=== PATIENT | male | born 1950 | race Hispanic/Latino ===

== ENCOUNTER 2022-07-15 12:44 | Emergency (ER) | payer OTHER, MEDICARE ==
[~2022-07-15] VITALS: Ht 180.3 cm; Wt 83.9 kg
[2022-07-15] MEDS ORDERED: DiphenhydrAMINE HCL 50 MG/ML VIAL ONE (12:50)
[2022-07-15] MEDS ORDERED: FAMOTIDINE 20MG VIAL IV ONE ×2 (12:54→14:00)
[2022-07-15] MEDS ORDERED: SOLU-MEDROL 125MG VIAL ONE (12:54)
[2022-07-15] MEDS ORDERED: 0.9%NACL 1000ML 1,000 ML IV ONE (13:30)
[2022-07-15] MEDS ORDERED: SOLU-MEDROL 125MG VIAL IVP ONE (14:00)
[2022-07-15] MEDS ORDERED: DiphenhydrAMINE HCL 50 MG/ML VIAL IV ONE (14:00)
[2022-07-15] MEDS ORDERED: EPIN0.3P3 IJ (14:54)
[2022-07-15 15:01] VITALS: BP 112/57
== END 2022-07-15 15:39 | disposition home or self-care (01) ==
LOC: EDH 12:44 → EDBD 12:44 → EDH 15:39
DX: T78.2XXA Anaphylactic shock, unspecified, initial encounter (principal); X58.XXXA Exposure to other specified factors, initial encounter; T63.441A Toxic effect of venom of bees, accidental (unintentional), initial encounter; Z79.52 Long term (current) use of systemic steroids
CPT/HCPCS: 99284; 96374; 96375; 93005 ×2; J1200; J3490; J2930

== ENCOUNTER 2022-10-21 08:08 | Emergency (ER) | payer OTHER, MEDICARE ==
[~2022-10-21] VITALS: Ht 177.8 cm; Wt 85.7 kg
[~2022-10-21 08:08] MED LIST: EPIN0.3P3 IJ
[2022-10-21] MEDS ORDERED: KETOROLAC 30MG VIAL (30MG/ML) IM STA (08:13)
[2022-10-21] MEDS ORDERED: NAPR-1196 PO (08:32)
[2022-10-21 09:20] VITALS: BP 119/76
== END 2022-10-21 09:27 | disposition home or self-care (01) ==
LOC: EDH 08:08
DX: S86.911A Strain of unspecified muscle(s) and tendon(s) at lower leg level, right leg, initial encounter (principal); X58.XXXA Exposure to other specified factors, initial encounter; Y93.89 Activity, other specified; Y92.89 Other specified places as the place of occurrence of the external cause; Y99.8 Other external cause status
CPT/HCPCS: 99283; 29505; 73562; J1885

== ENCOUNTER 2023-05-25 09:19 | Emergency (ER) | payer OTHER, MEDICARE ==
[~2023-05-25] VITALS: Ht 177.8 cm; Wt 84.8 kg
[~2023-05-25 09:19] MED LIST changes: +NAPR-1196 PO
[2023-05-25 09:20] VITALS: BP 104/69; PULSE 68; RESP 18
== END 2023-05-25 10:06 | disposition left against medical advice (07) ==
LOC: EDH 09:19
DX: R51.9 Headache, unspecified (principal); Z53.21 Procedure and treatment not carried out due to patient leaving prior to being seen by health care provider
CPT/HCPCS: 99281

== ENCOUNTER 2023-06-08 05:29 | Emergency (ER) | payer OTHER, MEDICARE ==
[~2023-06-08] VITALS: Ht 177.8 cm; Wt 84.8 kg
[2023-06-08 05:31] VITALS: BP 106/67; PULSE 70; RESP 20
[2023-06-08] MEDS ORDERED: ACETAMINOPHEN 500 MG TABLET ONE (05:48)
[2023-06-08] MEDS ORDERED: KETOROLAC 60 MG VIAL (30MG/ML) IM ONE ×2 (06:04→06:30)
[2023-06-08] MEDS ORDERED: PENICILLIN G BENZATHINE LA 1.2 MILUNITS/2 ML SYG IM ONE ×2 (06:05→06:30)
[2023-06-08 06:15] LABS: RAPID GROUP A STREP negative (NEGATIVE)
[2023-06-08 06:21] LABS: SARS-CoV-2, RNA, NAAT POSITIVE SARS CoV-2 (NEGATIVE)
[2023-06-08 06:25] LABS: INFLUENZA TYPE A Negative For Type A (NEGATIVE); INFLUENZA TYPE B Negative For Type B (NEGATIVE)
[2023-06-08] MEDS ORDERED: GUAI5LIQ13 PO (11:22)
[2023-06-08] MEDS ORDERED: IBUP-2070 PO (11:22)
[2023-06-08] MEDS ORDERED: MAGNESIUM 2GM PREMIX 50ML 50 ML IV PRN (12:00)
[2023-06-08] MEDS ORDERED: POTASSIUM CHLORIDE 10% ELIXIR 20 MEQ/15 ML UDCUP PO PRN (12:00)
[2023-06-08] MEDS ORDERED: POTASSIUM CHLORIDE 20MEQ/100ML 100 ML IV PRN (12:00)
[2023-06-08] MEDS ORDERED: KCL 20 MEQ ERTAB PO PRN (12:00)
[2023-06-08] MEDS ORDERED: LORAZEPAM 2 MG/ML 1 ML VIAL IVP PRN (12:00)
[2023-06-09] MEDS ORDERED: FOLIC ACID 1 MG TABLET PO SCH (09:00)
[2023-06-09] MEDS ORDERED: THIAMINE HCL 100 MG TABLET PO SCH (09:00)
== END 2023-06-08 12:13 | disposition home or self-care (01) ==
LOC: EDH 05:29
DX: U07.1 COVID-19 (principal); J02.9 Acute pharyngitis, unspecified; M25.511 Pain in right shoulder; M19.90 Unspecified osteoarthritis, unspecified site
CPT/HCPCS: 99285; 70450; 87635; 87880; 87804 ×2; 73030; 72125; 96372 ×2; J0561; C9803; J1885

== ENCOUNTER 2024-02-16 10:53 | Emergency (ER) | payer OTHER, MEDICARE ==
[~2024-02-16] VITALS: Ht 180.3 cm; Wt 79.4 kg
[~2024-02-16 10:53] MED LIST changes: +GUAI5LIQ13 PO; +IBUP-2070 PO
[2024-02-16 11:17] VITALS: BP 113/64; PULSE 73; RESP 18; O2SAT 98
== END 2024-02-16 13:54 | disposition left against medical advice (07) ==
LOC: EDH 10:53
DX: R42 Dizziness and giddiness (principal); M54.2 Cervicalgia

== ENCOUNTER 2024-07-05 15:35 | Emergency (ER) | payer OTHER, MEDICARE ==
[~2024-07-05] VITALS: Ht 172.7 cm; Wt 82.2 kg
[2024-07-05] MEDS: CYCLOBENZAPRINE HCL 10 MG TABLET PO ONE (16:13)
[2024-07-05] MEDS: ketOROlac 30MG VIAL (30MG/ML) IVP ONE (16:14)
[2024-07-05] MEDS ORDERED: IBUP-2077 PO (16:55)
[2024-07-05] MEDS ORDERED: CYCL10TA16 PO (16:55)
[2024-07-05 17:29] VITALS: BP 137/65; PULSE 72; RESP 18; TEMP 98.2; O2SAT 100
== END 2024-07-05 17:33 | disposition home or self-care (01) ==
LOC: EDH 15:35
DX: S30.0XXA Contusion of lower back and pelvis, initial encounter (principal); S80.01XA Contusion of right knee, initial encounter; S40.011A Contusion of right shoulder, initial encounter; K21.9 Gastro-esophageal reflux disease without esophagitis; Z98.890 Other specified postprocedural states; Z79.899 Other long term (current) drug therapy; W01.0XXA Fall on same level from slipping, tripping and stumbling without subsequent striking against object, initial encounter; Y93.02 Activity, running; Y92.89 Other specified places as the place of occurrence of the external cause; Y99.8 Other external cause status
CPT/HCPCS: 72100; 73030; 73562; 96374; J1885

== ENCOUNTER 2025-04-04 08:23 | Emergency (ER) | payer OTHER, MEDICAID ==
[~2025-04-04] VITALS: Ht 180.3 cm; Wt 83.9 kg
[~2025-04-04 08:23] MED LIST changes: +CYCL10TA16 PO; -GUAI5LIQ13 PO; +GUAI5SYR10 PO; +IBUP-2077 PO
[2025-04-04 08:35] VITALS: BP 110/65; PULSE 62; RESP 16; TEMP 98; O2SAT 96
[2025-04-04] MEDS: teTANUS/diphthERIA TOXOID [ADULT] 0.5 ML VIAL IM ONE (09:30)
--- NOTE | 2025-04-04 11:15 | HMCIMG ---
FOOT LIMITED 2VWS LT REASON: PUNCTURE WOUND TECHNIQUE: 2 views were obtained. FINDINGS: There is no evidence of fracture or dislocation. There is no joint effusion. The soft tissues appear unremarkable. There is no evidence of a radiopaque foreign body. IMPRESSION: No acute findings.
== END 2025-04-04 10:14 | disposition left against medical advice (07) ==
LOC: EDH 08:23
DX: S91.332A Puncture wound without foreign body, left foot, initial encounter (principal); S99.922A Unspecified injury of left foot, initial encounter; Z53.21 Procedure and treatment not carried out due to patient leaving prior to being seen by health care provider; Z23 Encounter for immunization; X58.XXXA Exposure to other specified factors, initial encounter; Y93.89 Activity, other specified; Y92.89 Other specified places as the place of occurrence of the external cause; Y99.8 Other external cause status
CPT/HCPCS: 73620; 90471; 90714